=== PATIENT | male | born 1940 | race Caucasian/White ===

== ENCOUNTER 2021-08-11 14:01 | Inpatient (IN) | payer OTHER, SELFPAY ==
[2021-08-11] VITALS (29 sets, daily range): BP systolic 148–207; BP diastolic 75–102; PULSE 59–74; RESP 13–26; TEMP 36.4–36.8; O2SAT 97–100; BMI 22.5
--- NOTE | ~2021-08-11 | XR_ITS ---
EXAMINATION: XR chest 2V 08/11/2021 14:26 INDICATION: Left-sided chest pressure PROCEDURE: 2 view chest COMPARISON: 07/18/2011 FINDINGS: The lungs are clear. The cardiomediastinal silhouette is within normal limits. There are no pleural effusions. There is no pneumothorax suspected. IMPRESSION: 1: NO ACUTE CARDIOPULMONARY DISEASE. Reviewed, dictated and finalized at location A.
--- NOTE | 2021-08-11 14:18 | ECG_ITS ---
Measurements Intervals [place] Rate: 65 P: 56 [place]: 152 QRS: -54 QRSD: 141 T: 81 QT: 421 QTc: 438 Interpretive Statements SINUS RHYTHM INTRAVENTRICULAR CONDUCTION DELAY POOR R WAVE PROGRESSION, ANTERIOR LEADS LEFT VENTRICULAR HYPERTROPHY WITH ST-T CHANGE BORDERLINE ECG Electronically Signed On 08-11-2021 14:43:07 CDT by Jonah Campa D.O.
[2021-08-11 14:44] LABS: Basophils Absolute Auto 0.1 K/mm3 (0.0-0.1); Eosinophils Absolute Auto 0.2 K/mm3 (0-0.3); Mean Platelet Volume 10.2 fl (7.4-10.4)
[2021-08-11 14:46] LABS: Immature Platelet Fraction Pct 2.8 % (0.9-11.2)
[2021-08-11 14:47] LABS: INR 0.9; Prothrombin Time 11.8 Seconds (11.1-14.7)
[2021-08-11 14:48] LABS: Partial Thromboplastin Time 25.6 SECONDS (22.3-36.8)
[2021-08-11 14:49] LABS: Anion Gap 6 mmol/L (8-16); Basophils Percent Auto 0.6 % (0.2-1.2); Blood Urea Nitrogen 21 mg/dL (9-20); Calcium 9.6 mg/dL (8.4-10.2); Carbon Dioxide 30 mmol/L (22-30); Chloride 102 mmol/L (98-107); Eosinophils Percent Auto 1.7 % (0-4.4); Estimated CRCL calculation 48 ml/min; Estimated Glomerular Filt Rate > 60; Glucose 101 mg/dL (65-110); Hematocrit 45.4 % (42.0-52.0); Hemoglobin 14.2 g/dL (14.0-18.0); Immature Granulocyte Absolute 0.03 K/mm3 (0.00-0.031); Immature Granulocyte Percent A 0.3 % (0-0.5); Lymphocytes Absolute Auto 1.21 K/mm3 (0.9-3.2); Lymphocytes Percent Auto 10.8 % (18.3-44.2); Mean Corpuscular HGB Conc 31.3 g/dl (32-36); Mean Corpuscular Hemoglobin 31.3 pg (26-34); Monocytes Absolute Auto 0.8 K/mm3 (0.1-0.6); Monocytes Percent Auto 6.8 % (2.6-8.5); Neutrophils Percent Auto 79.8 % (45.5-73.1); Platelet Count Result 220 k/mm3 (150-375); Potassium 4.2 mmol/L (3.4-5.0); Red Blood Count 4.54 M/mm3 (4.6-6.20); Red Cell Distribution Width 13.4 % (11.5-14.5); Sodium 138 mmol/L (137-145); White Blood Count 11.2 K/mm3 (4.5-10.0)
--- NOTE | 2021-08-11 16:28 | ECG_ITS ---
Measurements Intervals [place] Rate: 64 P: 56 [place]: 144 QRS: -54 QRSD: 131 T: 87 QT: 443 QTc: 460 Interpretive Statements SINUS RHYTHM LEFT ANTERIOR FASCICULAR BLOCK LEFT VENTRICULAR HYPERTROPHY AND ST-T CHANGE POOR R WAVE PROGRESSION, ANTERIOR LEADS BASELINE ARTIFACT- II, III, AVR, AVF, V3-V6 ABNORMAL ECG Electronically Signed On 08-11-2021 20:31:49 CDT by Jonah Campa D.O.
[2021-08-11] MEDS: ASPIRIN 81 MG CHEWABLE TABLET 324 MG PO (17:05)
--- NOTE | 2021-08-11 17:42 | ED.CHESTPAIN ---
HPI - Chest Pain General Chief Complaint: Chest Pain Stated Complaint: Chest Tightness Time Seen by Provider: 08/11/21 17:12 Source: patient History of Present Illness HPI narrative: Patient with a history of 2 prior stents presents with chest pain. Symptoms started around 1130 while he was working outside. Pain was a pressure sensation in the middle of his chest no radiation no clear aggravating or alleviating factors there is some association with lightheadedness and very mild shortness of breath. Denies any nausea vomiting or diaphoresis. Reports has had intermittent symptoms like this before but today's episode was more severe so he wanted to come to the ER for evaluation. Related Data Home Medications Medication Instructions Recorded Confirmed aspirin 81 mg tablet,delayed 81 mg PO DAILY 12/30/19 07/10/21 release simvastatin 40 mg tablet 40 mg PO DAILY 12/30/19 07/10/21 Allergies Allergy/AdvReac Type Severity Reaction Status Date / Time No Known Allergies Allergy Verified 07/10/21 10:43 Review of Systems Review of Systems: CONSTITUTIONAL: Denies fever, chills, or sweats. EYES: Denies visual changes, redness, or discharge. ENT: Denies rhinorrhea, congestion, sore throat, or otalgia. CARDIOVASCULAR: Denies palpitations, or edema. RESPIRATORY: Denies cough GASTROINTESTINAL: Denies abdominal pain, nausea, vomiting, or diarrhea. GENITOURINARY: Denies dysuria or hematuria. SKIN: Denies rash or itching. MUSCULOSKELETAL: Denies back pain, joint pain, or myalgia. NEUROLOGIC: Denies headache, numbness, or weakness. PSYCHIATRIC: Denies anxiety or depression. All systems reviewed & are unremarkable except as noted in HPI and below [facility] Past Medical History Medical History (Updated 08/11/21 @ 18:18 by Tamar Thomas PA-C) Coronary artery disease Status post stent to the proximal LAD and mid right coronary artery. 50% narrowing in the mid circumflex noted on cardiac catheterization in July 2010. Erectile dysfunction Mixed hyperlipidemia Ureteral calculi Surgical History Surgical History (Updated 08/11/21 @ 18:18 by Tamar Thomas PA-C) History of colonoscopy History of coronary artery stent placement (02/07/10) Proximal LAD and mid right coronary artery. History of cystoscopy (04/20/14) With right ureteroscopy, stone extraction, and right ureteral stent placement. 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 Family History Family History Mother Family history of chronic obstructive pulmonary disease Patient's mother is Father Family history of diabetes mellitus in first degree relative Family history of heart disease in male family member before age 55 Patient's father is Other Diabetes mellitus Family history of cardiovascular disease Family history of malignant neoplasm Social History Social History (Updated 08/11/21 @ 18:19 by Tamar Thomas PA-C) Social History: Surrogate decision maker: Laura Peterstata, spouse. Code status: Full code. Smoking status: Never smoker Alcohol intake: never Substance use: never Additional living arrangements comments: Resides in [place] with his . 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 Exam Narrative: GENERAL: Well-appearing, well-nourished, and in no acute distress. HEAD: Normocephalic, atraumatic. EYES: PERRLA and EOMI. ENT: Nares clear, no rhinorrhea or epistaxis. Mucous membranes moist. NECK: Supple. No masses. No JVD CHEST: Clear to auscultation. No respiratory distress. No wheezes rales or rhonchi HEART: Regular rate and rhythm. No murmur heard. Normal peripheral pulses. ABDOMEN: Soft, nontender, nondistended, normal active bowel
[2021-08-11] MEDS: HEPARIN SOD/D5W 100 UNITS/ML 25,000 UNITS/250 ML BAG 8 UNITS IV CONT (18:10)
[2021-08-11] MEDS: HEPARIN SODIUM 5,000 UNITS/ML VIAL 4000 UNITS IV PUSH (18:10)
--- NOTE | 2021-08-11 18:30 | PM.IMHP ---
H&P: HPI History of Present Illness Date/Time: 08/11/21 18:30 <Tamar Thomas PA-C - Last Filed: 08/11/21 21:36> Chief Complaint: Chest pain. <Tamar Thomas PA-C - Last Filed: 08/11/21 21:36> Narrative: This is a 81-year-old male with coronary artery disease status post stent x2 who presented to the emergency department earlier today from home for evaluation of chest pain. Around 11:30 he was outside doing some work on his boat when he developed a severe tightness in the middle of his chest associated with mild dizziness. It was severe enough that he sat down and took a nitroglycerin pill however that did nothing but give him us slight headache, so he went inside to lie down. The tightness continued and he tried 2 more nitroglycerin without benefit thus he felt it would be best to come in for evaluation. On the way to the hospital he took 2, 325 mg aspirin tablets and on arrival his troponin was found to be mildly elevated. His 3 hour troponin jumped quite markedly and a repeat EKG done at that time reportedly did not show any acute ST segment changes. He has since been started on a heparin drip and he is being admitted to the IMU in this setting. At the time my evaluation he has no discomfort and has no current complaints. With further questioning he does admit to being more winded than usual when walking his dog around the neighborhood though he has not had any chest pain with that. He last saw Dr. Kinney about 4 to 5 months ago and patient reports having an unremarkable stress test perhaps 6 months ago. <Tamar Thomas PA-C - Last Filed: 08/11/21 21:36> Review of Systems Review of Systems: Twelve systems were reviewed. Patient denies nausea, vomiting, and sweats with his pain today. No pleuritic pain. No orthopnea, PND, or lower extremity edema. No cold or flu symptoms. He denies recent travel. He did receive the COVID vaccination series but has yet to have his booster. Except as documented, all other systems were reviewed and are negative. <Tamar Thomas PA-C - Last Filed: 08/11/21 21:36> [facility] Past Medical History Medical History: Medical History Coronary artery disease Status post stent to the proximal LAD and mid right coronary artery. 50% narrowing in the mid circumflex noted on cardiac catheterization in July 2010. Erectile dysfunction Mixed hyperlipidemia Ureteral calculi <Tamar Thomas PA-C - Last Filed: 08/11/21 21:36> Surgical History Surgical History: Surgical History (Updated 08/11/21 @ 21:30 by Tamar Thomas PA-C) History of cataract extraction with lens replacement History of colonoscopy History of coronary artery stent placement (02/07/10) Proximal LAD and mid right coronary artery. History of cystoscopy (04/20/14) With right ureteroscopy, stone extraction, and right ureteral stent placement. 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 <Tamar Thomas PA-C - Last Filed: 08/11/21 21:36> Family History Family History: Family History Mother Patient's mother is Family history of chronic obstructive pulmonary disease Cancer Family history of malignant neoplasm Father Family history of heart disease in male family member before age 55 Family history of diabetes mellitus in first degree relative Patient's father is Family history of cardiovascular disease <Tamar Thomas PA-C - Last Filed: 08/11/21 21:36> Social History Social History: Social History (Updated 08/11/21 @ 21:30 by Tamar Thomas PA-C) Social History: Surrogate decision maker: Laura Nur, spouse. Code status: Full code. Smoking status: Never
[2021-08-11] MEDS: MORPHINE SULFATE (*CRX) 4 MG/ML INJ IV PUSH (18:37)
[2021-08-11] MEDS: METOPROLOL TARTRATE INJ 5 MG/5 ML VIAL IV PUSH (18:37)
[2021-08-11 20:00] LABS: Basophils Absolute Auto 0.1 K/mm3 (0.0-0.1); Basophils Percent Auto 0.7 % (0.2-1.2); Eosinophils Absolute Auto 0.4 K/mm3 (0-0.3); Hematocrit 42.4 % (42.0-52.0); Immature Granulocyte Absolute 0.03 K/mm3 (0.00-0.031); Immature Granulocyte Percent A 0.3 % (0-0.5); Lymphocytes Absolute Auto 1.91 K/mm3 (0.9-3.2); Lymphocytes Percent Auto 21.8 % (18.3-44.2); Mean Corpuscular Hemoglobin 31.2 pg (26-34); Mean Corpuscular Volume 94.4 fl (80-100); Mean Platelet Volume 9.6 fl (7.4-10.4); Monocytes Absolute Auto 0.7 K/mm3 (0.1-0.6); Monocytes Percent Auto 8.3 % (2.6-8.5); Neutrophils Absolute Auto 5.6 K/mm3 (1.3-6.7); Neutrophils Percent Auto 63.9 % (45.5-73.1); Platelet Count Result 211 k/mm3 (150-375); Red Blood Count 4.49 M/mm3 (4.6-6.20); Red Cell Distribution Width 13.3 % (11.5-14.5); White Blood Count 8.8 K/mm3 (4.5-10.0)
[2021-08-11 20:10] LABS: INR 0.9; Prothrombin Time 12.5 Seconds (11.1-14.7)
[2021-08-11 20:13] LABS: Partial Thromboplastin Time 129.5 SECONDS (22.3-36.8)
--- NOTE | 2021-08-11 20:41 | ADMGEN ---
This patient, Dk Nur, was admitted to IMU Room 212-01 at 08/11/21 at 2004. Patient/family oriented to hospital policies and general routines including ID bracelet, bed and alarms, visiting hours, pain management, procedures, bathroom and other care routines, personal items, smoking policy, room service/diet, and visiting hours. Information on how to activate the Rapid Response Team has been discussed. Patient/Family are encouraged to report perceived risks to care and to ask questions if they do not understand what they are told or what they should do.
[2021-08-11] MEDS: SODIUM CHLORIDE 0.9% IV 1,000 ML 125 ML IV CONT (21:09)
[2021-08-11] MEDS: SIMVASTATIN 20 MG TABLET 40 MG PO (23:57)
[2021-08-12] VITALS (23 sets, daily range): BP systolic 125–175; BP diastolic 72–109; PULSE 48–72; RESP 14–20; TEMP 36.3–37; O2SAT 93–99
[2021-08-12 06:46] LABS: Basophils Absolute Auto 0.1 K/mm3 (0.0-0.1); Basophils Percent Auto 1.1 % (0.2-1.2); Eosinophils Absolute Auto 0.7 K/mm3 (0-0.3); Eosinophils Percent Auto 8.4 % (0-4.4); Hematocrit 41.6 % (42.0-52.0); Hemoglobin 13.8 g/dL (14.0-18.0); Immature Granulocyte Absolute 0.03 K/mm3 (0.00-0.031); Immature Granulocyte Percent A 0.4 % (0-0.5); Lymphocytes Absolute Auto 1.64 K/mm3 (0.9-3.2); Lymphocytes Percent Auto 20.2 % (18.3-44.2); Mean Corpuscular HGB Conc 33.2 g/dl (32-36); Mean Corpuscular Hemoglobin 30.7 pg (26-34); Mean Corpuscular Volume 92.7 fl (80-100); Mean Platelet Volume 9.9 fl (7.4-10.4); Monocytes Absolute Auto 0.7 K/mm3 (0.1-0.6); Monocytes Percent Auto 8.7 % (2.6-8.5); Neutrophils Percent Auto 61.2 % (45.5-73.1); Platelet Count Result 207 k/mm3 (150-375); Red Blood Count 4.49 M/mm3 (4.6-6.20); Red Cell Distribution Width 13.3 % (11.5-14.5); White Blood Count 8.1 K/mm3 (4.5-10.0)
[2021-08-12 07:08] LABS: Alanine Aminotransferase 27 U/L (4-50); Alkaline Phosphatase 85 U/L (38-126); Anion Gap 4 mmol/L (8-16); Aspartate Amino Transferase 119 U/L (17-59); Bilirubin,Total 0.6 mg/dL (0.2-1.3); Blood Urea Nitrogen 14 mg/dL (9-20); Carbon Dioxide 27 mmol/L (22-30); Chloride 106 mmol/L (98-107); Cholesterol 151 mg/dL (0-200); Estimated CRCL calculation 53 ml/min; Estimated Glomerular Filt Rate > 60; Glucose 103 mg/dL (65-110); HDL Direct 72 mg/dL; Potassium 3.9 mmol/L (3.4-5.0); Sodium 137 mmol/L (137-145); Triglycerides 85 mg/dL (<150)
[2021-08-12 07:17] LABS: LDL Cholesterol Direct 63 mg/dL
[2021-08-12 07:44] LABS: Partial Thromboplastin Time 51.5 SECONDS (22.3-36.8)
--- NOTE | 2021-08-12 08:28 | PM.IMPN ---
Progress Note: A&P Assessment and Plan (1) Acute non-ST elevation myocardial infarction (NSTEMI): Code(s): I21.4 - Non-ST elevation (NSTEMI) myocardial infarction Status: Acute (2) Coronary artery disease: Code(s): I25.10 - Atherosclerotic heart disease of [place] coronary artery without angina pectoris Status: Acute (3) Mixed hyperlipidemia: Code(s): E78.2 - Mixed hyperlipidemia Status: Acute (4) Hypertension: Qualifiers: Hypertension type: unspecified Qualified Code(s): I10 - Essential (primary) hypertension Code(s): I10 - Essential (primary) hypertension Status: Acute Additional Plan ACS -Presenting with severe exertional retrosternal chest pain. Trop 0.6 to 20, ST changes on EKG -no acute cxr findings, not hypoxic right now -ACS protocol: prn morphine and nitroglycerin; Aspirin 325 x2 en route to hospital, 50 Toprol, 40 simvastatin, currently on Heparin Drip. -labeling specialist results: lt main stenosis, high grade ostial LAD stenosis, proximal aspect large OM1/ramus; rec surgical revascularization given high grade lesions in LAD, OM/ramus branch, moderate left main disease Time Spent With Patient Time with patient: less than 15 minutes Subjective Date/time seen: 08/12/21 08:28 currently well controlled chest pain breathing on room air Review of Systems Review of Systems: All systems reviewed & are unremarkable except as noted in HPI and below Exam Const: General: no acute distress Neck: Neck: no JVD Resp: Effort & Inspection: normal respiratory effort Auscultation: clear to auscultation bilaterally Cardio: Rate: regular rate Rhythm: regular rhythm GI: GI Palp: Yes Soft to palpation and No Tenderness to palpation present (GI) Objective Data Vital Signs Vital Signs: Vital Signs - 24 hr 08/11/21 14:28 08/11/21 16:26 08/11/21 16:30 Temperature 97.6 F Pulse Rate 65 64 63 Respiratory Rate 16 17 23 H Blood Pressure 180/88 H Pulse Oximetry 99 100 100 08/11/21 16:45 08/11/21 17:00 08/11/21 17:15 Temperature Pulse Rate 63 65 64 Respiratory Rate 19 13 23 H Blood Pressure Pulse Oximetry 99 99 100 08/11/21 17:30 08/11/21 17:37 08/11/21 17:39 Temperature Pulse Rate 64 64 64 Respiratory Rate 21 H 23 H 22 H Blood Pressure 207/102 H 206/96 H Pulse Oximetry 98 100 100 08/11/21 17:45 08/11/21 17:46 08/11/21 18:00 Temperature Pulse Rate 65 64 64 Respiratory Rate 20 23 H 22 H Blood Pressure 182/97 H Pulse Oximetry 97 99 99 08/11/21 18:01 08/11/21 18:02 08/11/21 18:15 Temperature Pulse Rate 66 65 65 Respiratory Rate 22 H 26 H 22 H Blood Pressure 167/89 H 184/94 H Pulse Oximetry 99 99 100 08/11/21 18:16 08/11/21 18:30 08/11/21 18:31 Temperature Pulse Rate 64 66 66 Respiratory Rate 23 H 22 H 24 H Blood Pressure 178/91 H Pulse Oximetry 100 99 98 08/11/21 18:32 08/11/21 18:37 08/11/21 18:45 Temperature Pulse Rate 66 68 60 Respiratory Rate 21 H 16 Blood Pressure Pulse Oximetry 99 98 08/11/21 18:46 08/11/21 20:15 08/11/21 20:16 Temperature Pulse Rate 62 61 61 Respiratory Rate 21 H 18 Blood Pressure 148/83 H Pulse Oximetry 98 99 08/11/21 20:25 08/11/21 20:36 08/11/21 22:00 Temperature 98.2 F Pulse Rate 61 60 59 L Respiratory Rate 18 18 Blood Pressure 160/75 H Pulse Oximetry 99 98 08/11/21 23:40 08/11/21 23:47 08/12/21 00:00 Temperature 98 F Pulse Rate 74 74 68 Respiratory Rate 18 18 Blood Pressure 161/89 H Pulse Oximetry 97 97 08/12/21 01:31 08/12/21 03:12 08/12/21 04:00 Temperature 97.8 F Pulse Rate 59 L 57 L 57 L Respiratory Rate 16 Blood Pressure 148/75 H Pulse Oximetry 96 08/12/21 05:52 Temperature Pulse Rate 60 Respiratory Rate Blood Pressure Pulse Oximetry Intake/Output Intake/Output: Intake & Output 08/09/21 08/10/21 08/11/21 08/12/21 23:59 23:59 23:59 23:59 Intake Total 344 Output Total 340
--- NOTE | 2021-08-12 08:43 | PM.CNCAR ---
Assessment and Plan Additional Plan 81-year-old man with coronary disease remote history of PCI to the LAD and right coronary arteries as mentioned above. Presents to the hospital with obvious acute coronary syndrome. He is stable this morning. We will bring him to the cardiac catheterization lab for follow-up angiographic assessment shortly and further recommendations will be formulated after reviewing those findings. Giovani Isbell MD [facility] History of Present Illness History of Present Illness Consult date/time: 08/12/21 08:43 Reason For Visit: NSTEMI Narrative: This is a very pleasant 81-year-old man I am seeing at the request of the hospitalist because of acute coronary syndrome/non ST elevation [place]. He is known to our practice with a history of coronary artery disease dating back to about 11 years ago. In 2009 he was found to have coronary disease and underwent percutaneous angioplasty and stenting of his proximal LAD and mid right coronary arteries. He has done well since then. He did have an episode of exertional dyspnea mild decline in ejection fraction on a nuclear stress test in December of 2014. A follow-up angiogram at that time demonstrated his stented lesions to be nicely patent there was a new small occlusion of the 2nd OM circumflex branch that appeared to be a chronic total occlusion he was stable his left ventricular function looked okay in the carpenter/labor and ongoing medical therapy was recommended. He has been doing well since then and follows that now in the office with Dr. Castellanos. Patient was in his usual state of good health when yesterday on Thursday afternoon he was at the [employer] working on his boat. While he was performing his maintenance activities he started to notice some central chest tightness that was not severe but at least moderate in intensity the sense of tightness did not radiate to any other location. He took a nitroglycerin tablet then he went into his house to lie down and relax. Over the next 20-30 minutes he took a 2-1/3nd dose as he has been instructed to do by his physicians he then developed a nitrate headache but really no substantial improvement in his symptoms so he came to the emergency department. His electrocardiogram shows a sinus mechanism with a leftward axis, a left anterior superior hemiblock but no significant ST segment changes. Troponin level in the emergency room was minimally elevated. He was treated with aspirin, anticoagulation with heparin nitrates and beta-blockers and became symptom free in the emergency department. He is admitted to the IMU his troponin levels however has risen significantly up to 11 and then up to 21. He is being seen in that setting in consultation this morning. His past medical history is otherwise remarkable for hyperlipidemia and nephrolithiasis. Review of Systems Constitutional: Constitutional: Reports no additional constitutional complaints Eyes: Eyes: Reports no additional eye complaints ENT: Reports system reviewed and no additional complaints, except as documented Cardiovascular: Cardiovascular: Reports as per HPI Respiratory: Respiratory: Reports no additional respiratory complaints Gastrointestinal: Gastrointestinal: Reports no additional gastrointestinal complaints Musculoskeletal: Musculoskeletal: Reports no additional musculoskeletal complaints Integumentary/Breasts: Skin/Breast: Reports system reviewed and no additional complaints, except as docu Neurologic: Reports system reviewed and no additional complaints, except as documented Endocrine: Endocrine: Reports no additional endocrine complaints Hematologic/Lymphatic: Hematologic/Lymphatic: Reports no additional hematologic/lymphatic complaints Allergic/Immunologic: Allergic/Immunologic: Reports no additional allergic/immunologic complaints [facility] Past Medical History Medical History Coronary artery disease Status post stent to
--- NOTE | 2021-08-12 08:56 | WPDMODSED ---
Moderate Sedation Note-Pt Data Patient Data Diagnosis: Non ST-elevation [place] Present Complaint: Chest pain Procedure to be performed/Plan: Left heart catheterization Allergies Allergy/AdvReac Type Severity Reaction Status Date / Time No Known Allergies Allergy Verified 07/10/21 10:43 Home Medications Medication Instructions Recorded Confirmed Type aspirin 81 mg tablet,delayed 81 mg PO 12/30/19 08/11/21 History release simvastatin 40 mg tablet 40 mg PO 12/30/19 08/11/21 History Current Medications: Active Medications Aspirin (Aspirin 81 Mg Chewable Tablet) 81 mg PO DAILY@0800 [facility] Aspirin (Aspirin Ec At Hs - Patient Already Has Asa Ordered For Am - Please Clarify Which Order To) 81 mg PO [facility] Heparin Sodium (Porcine) (Heparin Sodium 5,000 Units/Ml Vial) 4,000 units IV PUSH PRN PRN PRN Reason: aPTT less than 55 seconds Heparin Sodium (Porcine) (Heparin Sodium 5,000 Units/Ml Vial) 2,500 units IV PUSH PRN PRN PRN Reason: aPTT 55 - 70 seconds Heparin Sodium/Dextrose (Heparin Sodium/D5w 100 Units/Ml) 25,000 units in 250 mls @ 8 mls/hr IV CONT .Q24H ZAHRA; Protocol Last Titration: 08/12/21 00:02 Dose: 800 units/hr, 8 mls/hr Documented by: Acetaminophen (Ofirmev 1,000 Mg Ivpb) 1,000 mg in 100 mls @ 400 mls/hr IVPB Q6H PRN PRN Reason: Mild Pain (1-3) or Fever Stop: 08/12/21 18:02 Metoprolol Succinate (Metoprolol Succinate Ext Rel 50 Mg Tabcr) [facility] Miscellaneous Information (Aspirin Ec At Hs - Patient Already) 0 each XX [facility] Stop: 09/10/21 00:00 Morphine Sulfate (Morphine Sulfate (*Crx) 4 Mg/Ml Inj) 4 mg IV PUSH Q2H PRN PRN Reason: Pain Rated 7-10 Nitroglycerin (Nitroglycerin Sl 0.4 Mg Tablet) 0.4 mg SUBLINGUAL Q5MIN PRN PRN Reason: Chest Pain Simvastatin (Simvastatin 20 Mg Tablet) 40 mg PO [facility] Sedation/Anesthesia: No previous sedation/anesthesia problems (including family history). [facility] Past Medical History Medical History Coronary artery disease Status post stent to the proximal LAD and mid right coronary artery. 50% narrowing in the mid circumflex noted on cardiac catheterization in July 2010. Erectile dysfunction Mixed hyperlipidemia Ureteral calculi Surgical History Surgical History (Updated 08/11/21 @ 21:30 by Tamar Thomas PA-C) History of cataract extraction with lens replacement History of colonoscopy History of coronary artery stent placement (02/07/10) Proximal LAD and mid right coronary artery. History of cystoscopy (04/20/14) With right ureteroscopy, stone extraction, and right ureteral stent placement. 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 Family History Family History Mother Patient's mother is Family history of chronic obstructive pulmonary disease Cancer Family history of malignant neoplasm Father Family history of heart disease in male family member before age 55 Family history of diabetes mellitus in first degree relative Patient's father is Family history of cardiovascular disease Social History Social History (Updated 08/11/21 @ 21:30 by Tamar Thomas PA-C) Social History: Surrogate decision maker: Laura Nur, spouse. Code status: Full code. Smoking status: Never smoker Second hand tobacco smoke exposure: No Alcohol intake: never Substance use: never Substance use type: does not use Additional living arrangements comments: Resides in [place] with his . 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
--- NOTE | 2021-08-12 09:48 | WPDCARDPROC ---
Cardiac Cath Procedure Note Date of procedure:: 08/12/21 Performing physician:: Giovani Isbell MD Indication:: Acute coronary syndrome / non ST-elevation [place] Brief clinical history:: this is a 81-year-old man who is well known to have coronary disease having undergone stenting of his proximal LAD and mid right coronary artery 11 years ago. He is known to have a distal circumflex occlusion subsequent to that. He has been doing well but entered the hospital yesterday with ischemic chest pain that began while he was doing some chores, working on his boat. 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 Troponin levels though did increase significantly prompting follow-up angiogram to be recommended. Procedure Procedure performed:: Coronary angiogram left ventriculogram Sedation/Medication given:: fentanyl 50 mg Versed 2 mg case start time 9:18 a.m. case end time 9:34 a.m. sedation provided by Nathan Villanueva RN, trained observer Access site:: right femoral artery Estimated blood loss:: 15 cc Procedure note:: patient was brought to the cardiac catheterization lab in the postabsorptive state the right femoral triangle was prepped and draped in the usual fashion. Anesthesia was provided with 1% lidocaine infiltrated locally. Using the modified Seldinger technique the femoral artery was punctured 5 [place] vascular sheath was placed. Left heart catheterization was then carried out initially a 5 [place] angled pigtail catheter was used to measure left-sided hemodynamics and inject an LV g in the LEWIS projection. After this the pigtail catheter was withdrawn. I used a standard 5 [place] FL4 catheter to engage inject the left coronary artery in multiple projections. Then a standard 5 [place] JR4 catheter was used to engage and inject the right coronary artery. The cine angiograms were reviewed and the case was terminated. I did perform an angiogram of the femoral artery through the sheath the puncture was inferior to the bifurcation and he was therefore not a candidate for Angio-Seal device. 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 Findings:: Hemodynamics: Central aortic pressure is 118 over 56 left ventricle 122/0 end diastolic is 10 there is no gradient on pullback across the aortic valve. Left ventricle: The LV is normal in size the inferior posterior segment is modestly hypodynamic overall ejection fraction is normal at 50%. The left main coronary artery is relatively long there is distal left main disease that is somewhat eccentric there appears to be at least 60% distal left main stenosis. The left anterior descending is a medium caliber artery extending down to around the apex there is visible stent material in the proximal segment of the LAD which remains nicely patent. In the MAYRA cranial projection however it is obvious there is a high-grade ostial LAD stenosis of 99%. The circumflex is a moderate caliber vessel the 1st very large OM branch takes off as a ramus intermedius branch. This vessel has high-grade proximal stenosis of 85-90%. 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 Right coronary artery is moderate to large caliber and dominant to the posterior circulation. There is visible stent material in the mid portion of the RCA. There are mild luminal irregularities in the right coronary but no functionally significant disease. There is some collateral filling from the distal RCA to the occluded distal circumflex segment. Conclusion:: 1. Progressive left coronary disease involving moderate distal left main stenosis, very high-grade ostial LAD stenosis and very high-grade stenosis in the proximal aspect of the very large OM
[2021-08-12] MEDS: SODIUM CHLORIDE 0.9% IV 1,000 ML 125 ML IV CONT (10:00)
--- NOTE | 2021-08-12 10:26 | SUR.PHASEII ---
Pt arrived to Chest pain center at 0956 for sheath removal post cardiac cath. Sheath intact to right femoral artery without signs of hematoma prior to sheath removal at 1004. Pt voided per urinal while manual pressure is in progress.
[2021-08-12] MEDS: METOPROLOL SUCCINATE EXT REL 50 MG TABCR PO (11:47)
[2021-08-12] MEDS: ASPIRIN 81 MG CHEWABLE TABLET PO (11:47)
[2021-08-12 14:12] LABS: Basophils Absolute Auto 0.1 K/mm3 (0.0-0.1); Basophils Percent Auto 0.8 % (0.2-1.2); Eosinophils Absolute Auto 0.4 K/mm3 (0-0.3); Eosinophils Percent Auto 5.6 % (0-4.4); Hematocrit 42.6 % (42.0-52.0); Hemoglobin 13.9 g/dL (14.0-18.0); Immature Granulocyte Absolute 0.02 K/mm3 (0.00-0.031); Immature Granulocyte Percent A 0.3 % (0-0.5); Lymphocytes Absolute Auto 1.29 K/mm3 (0.9-3.2); Lymphocytes Percent Auto 17.6 % (18.3-44.2); Mean Corpuscular HGB Conc 32.6 g/dl (32-36); Mean Corpuscular Volume 94.9 fl (80-100); Mean Platelet Volume 9.7 fl (7.4-10.4); Monocytes Absolute Auto 0.5 K/mm3 (0.1-0.6); Neutrophils Percent Auto 68.7 % (45.5-73.1); Platelet Count Result 191 k/mm3 (150-375); Red Blood Count 4.49 M/mm3 (4.6-6.20); Red Cell Distribution Width 13.6 % (11.5-14.5); White Blood Count 7.3 K/mm3 (4.5-10.0)
[2021-08-12 14:33] LABS: INR 0.9; Prothrombin Time 12.2 Seconds (11.1-14.7)
--- NOTE | 2021-08-12 15:48 | PM.TDS ---
Transfer Discharge Sum: Prov Provider Date of admission: 08/11/21 18:03 Primary care physician: Michele Salgado DO Admitting clinician: Isaac Giles MD Attending physician on admission: Isaac Giles Consults: 08/11/21 18:04 Consult to Physician Routine Comment: Consulting Provider: Giovani Isbell Reason for consultation: NSTEMI Has provider been notified: Yes Attending physician on discharge: Isaac Giles Discharging clinician: Isaac Giles Anticipated date of transfer: 08/12/21 DS: Admitting Diagnosis Discharge Date 08/12 Admitting Diagnosis chest pain DS: Discharge Diagnosis Discharge Diagnosis (1) Acute non-ST elevation myocardial infarction (NSTEMI): Code(s): I21.4 - Non-ST elevation (NSTEMI) myocardial infarction Status: Acute Transfer Discharge Sum: Med Medications Active and Home Medications: Home Medications aspirin 81 mg tablet,delayed release 81 mg PO 12/30/19 [History Confirmed 08/11/21] simvastatin 40 mg tablet 40 mg PO 12/30/19 [History Confirmed 08/11/21] Active Medications Aspirin (Aspirin 81 Mg Chewable Tablet) 81 mg PO DAILY@0800 [facility] Last Admin: 08/12/21 11:47 Dose: 81 mg Documented by: Aspirin (Aspirin Ec At Hs - Patient Already Has Asa Ordered For Am - Please Clarify Which Order To) 81 mg PO [facility] Heparin Sodium (Porcine) (Heparin Sodium 5,000 Units/Ml Vial) 4,000 units IV PUSH PRN PRN PRN Reason: aPTT less than 55 seconds Heparin Sodium (Porcine) (Heparin Sodium 5,000 Units/Ml Vial) 2,500 units IV PUSH PRN PRN PRN Reason: aPTT 55 - 70 seconds Acetaminophen (Ofirmev 1,000 Mg Ivpb) 1,000 mg in 100 mls @ 400 mls/hr IVPB Q6H PRN PRN Reason: Mild Pain (1-3) or Fever Stop: 08/12/21 18:02 Sodium Chloride (Normal Saline Iv) 1,000 mls @ 125 mls/hr IV CONT .Q8H ONE Stop: 08/12/21 17:45 Last Admin: 08/12/21 10:00 Dose: 125 mls/hr Documented by: Heparin Sodium/Dextrose (Heparin Sodium/D5w 100 Units/Ml) 25,000 units in 250 mls @ 8 mls/hr IV CONT .Q24H [facility]; Protocol Metoprolol Succinate (Metoprolol Succinate Ext Rel 50 Mg Tabcr) 50 mg PO QAM [facility] Last Admin: 08/12/21 11:47 Dose: 50 mg Documented by: Miscellaneous Information (Aspirin Ec At Hs - Patient Already) 0 each XX CLARIFY [facility] Stop: 09/10/21 00:00 Morphine Sulfate (Morphine Sulfate (*Crx) 4 Mg/Ml Inj) 4 mg IV PUSH Q2H PRN PRN Reason: Pain Rated 7-10 Nitroglycerin (Nitroglycerin Sl 0.4 Mg Tablet) 0.4 mg SUBLINGUAL Q5MIN PRN PRN Reason: Chest Pain Simvastatin (Simvastatin 20 Mg Tablet) 40 mg PO [facility] Transfer Discharge Sum: Hosp Hospital Course Hospital course: 81-year-old male with coronary artery disease status post 2 stent placements presenting to the emergency room on August 11 with chest pain, exertional, associated with dizziness, substernal. he received high-dose aspirin on the way to the hospital, in addition to nitroglycerin. Troponin initially 0.6, however elevated to 20 a few hours later, some ST depression, however no elevation, patient was placed on ACS protocol including morphine, nitroglycerin, aspirin, metoprolol, statins, and heparin drip. Taken to general labor, left main stenosis identified along with high-grade ostial LAD stenosis and proximal aspect of the large OM1 ramus. Cardiology recommending surgical revascularization given high-grade lesions in these vessels. Patient has been assigned a bed at [facility], and we will send him over there today, for surgical revascularization. He should be transported with heparin drip and p.r.n. morphine and p.r.n. nitroglycerin. This has been conveyed to the nurse. Also discussed this with the patient. Time Spent with Patient Time attestation: Total time spent providing and/or coordinating transfer services: Total time spent: Less than 30 minutes Exam Const: General: no acute distress Neck: Neck: no JVD Resp: Auscultation: clear to auscultation bilaterally Cardio: Rate: regular rate Rhythm: regular rhy
[2021-08-12] MEDS: HEPARIN SOD/D5W 100 UNITS/ML 25,000 UNITS/250 ML BAG 8 UNITS IV CONT (15:56)
--- NOTE | 2021-08-12 17:13 | PCCCNOTE ---
Spoke with Zamzam Hernandez at [facility] and obtained prior auth for ACLS transport. Prior auth #[id number]
== END 2021-08-12 19:07 | disposition short-term general hospital (02) | DRG 282 ==
LOC: ANHED 17:59 → ANHIMU 21:38
PROVIDERS: Emergency Medicine; Physician Assistant; Specialist; Admitting Provider Internal Medicine; Emergency Provider Emergency Medicine; PCP Internal Medicine; Visit Provider Internal Medicine
PROC: 4A023N7 Measurement of Cardiac Sampling and Pressure, Left Heart, Percutaneous Approach (ICD-10-PCS; CPT 93452; principal; 2021-08-12 09:00)
DX: I21.4 Non-ST elevation (NSTEMI) myocardial infarction (principal); I25.10 Atherosclerotic heart disease of native coronary artery without angina pectoris; E78.2 Mixed hyperlipidemia; N52.9 Male erectile dysfunction, unspecified; Z95.5 Presence of coronary angioplasty implant and graft; Z79.82 Long term (current) use of aspirin; Z98.42 Cataract extraction status, left eye; Z98.41 Cataract extraction status, right eye
CPT/HCPCS: 36415; 71046; 80048; 80053; 80061; 83735; 84484; 85025; 85055; 85610; 85730; 93005; 93458; 99285; A9270; C1887; C1894; J0461; J1644; J2250; J2270; J3010; J7030; J7040

== ENCOUNTER → 2021-09-13 09:49 | Outpatient (CLI) | payer OTHER, SELFPAY ==
[2021-09-13 16:36] LABS: SARS-CoV-2 RNA PCR Negative
== END ==
PROVIDERS: PCP Internal Medicine; Visit Provider Internal Medicine
DX: Z20.822 Contact with and (suspected) exposure to COVID-19 (principal)
CPT/HCPCS: C9803; U0003; U0005

== ENCOUNTER 2021-11-20 09:45 | Outpatient (RCR) | payer OTHER, SELFPAY | END 2021-11-20 09:58 | disposition home or self-care (01) | LOC: ANHCPREHAB 09:45 | PROVIDERS: PCP Internal Medicine; Visit Provider Specialist | DX: Z95.1 Presence of aortocoronary bypass graft (principal) | CPT/HCPCS: 93798 ==

== ENCOUNTER 2022-01-29 10:41 | Emergency (ER) | payer OTHER, SELFPAY ==
--- NOTE | ~2022-01-29 | XR_ITS ---
EXAMINATION: XR forearm LT 2V EXAM DATE: 01/29/2022 11:30 INDICATION: Anterior Mid Forearm Pain, Lamar Pop Opening Car Door . TECHNIQUE: Left forearm frontal and lateral projections obtained and reviewed. Correlation is made to left elbow 07/04/2019. FINDINGS: There are no acute left forearm fractures or dislocations identified. There is no subcutan eous gas. The soft tissue is unremarkable. There are no radiopaque foreign bodies. IMPRESSION: 1. Unremarkable left forearm exam. Reviewed, dictated and finalized at location A.
[2022-01-29 11:07] VITALS: BP 112/67; PULSE 67; RESP 16; TEMP 36.6; O2SAT 93
[2022-01-29] MEDS: ACETAMINOPHEN 500 MG TABLET 1000 MG PO (11:31)
--- NOTE | 2022-01-29 12:05 | ED.GENADULT ---
HPI - General Adult General Chief complaint: Extremity Injury, Upper Stated complaint: L forearm pain since 01/25/22 Time Seen by Provider: 01/29/22 11:13 Source: RN notes reviewed History of Present Illness HPI narrative: Patient presents emergency department from home for left forearm pain. Patient states he initially injured the forearm proximally 1 week ago when he was putting on socks he states that time he had felt a pop in his left forearm he states that the following day he noticed bruising across his left forearm states it hurt worse to make it fist with his left hand but he denied any direct trauma or injury and denies any pain to the wrist or elbow he states that he was going to open the car door and again felt a pull in that area and pain since that time he is on Plavix and aspirin he denies any other symptoms. Denies any numbness to the arm Related Data Home Medications Medication Instructions Recorded Confirmed aspirin 81 mg tablet,delayed 81 mg PO HS 12/30/19 09/02/21 release simvastatin 40 mg tablet 40 mg PO HS 12/30/19 09/02/21 amiodarone 200 mg tablet 200 mg PO BID tablet 09/02/21 09/02/21 clopidogrel 75 mg tablet 75 mg PO DAILY 09/02/21 09/02/21 docusate sodium 100 mg capsule 100 mg PO BID cap 09/02/21 09/02/21 polyethylene glycol 3350 17 17 g PO DAILY 09/02/21 09/02/21 gram/dose oral powder tramadol 50 mg tablet 50 mg PO Q4H PRN tablet 09/02/21 09/02/21 Allergies Allergy/AdvReac Type Severity Reaction Status Date / Time No Known Allergies Allergy Verified 01/29/22 11:09 Review of Systems Review of Systems: Gen.: Denies fevers or chills Musculoskeletal: See HPI Neuro: Denies numbness, tingling, weakness Skin: Denies rash Endo: Denies DM PMFSH Past Medical History Medical History Coronary artery disease Status post stent to the proximal LAD and mid right coronary artery. 50% narrowing in the mid circumflex noted on cardiac catheterization in July 2010. Erectile dysfunction Mixed hyperlipidemia Ureteral calculi Surgical History Surgical History (Updated 09/02/21 @ 12:58 by Arlene M. Supriya, BAG HANGER-C) History of cataract extraction with lens replacement History of colonoscopy History of coronary artery stent placement (02/07/10) Proximal LAD and mid right coronary artery. History of cystoscopy (04/20/14) With right ureteroscopy, stone extraction, and right ureteral stent placement. 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 Family History Family History Mother Patient's mother is Family history of chronic obstructive pulmonary disease Cancer Family history of malignant neoplasm Father Family history of heart disease in male family member before age 55 Family history of diabetes mellitus in first degree relative Patient's father is Family history of cardiovascular disease Social History Social History Social History: Surrogate decision maker: Laura Steinsukumar, spouse. Code status: Full code. Smoking status: Never smoker Second hand tobacco smoke exposure: No Alcohol intake: never Substance use: never Substance use type: does not use Additional living arrangements comments: Resides in [place] with his . 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 Exam Narrative: APPEARANCE: No acute distress, nontoxic, resting in bed Eyes: EOMI HEENT: Normocephalic, atraumatic, RESPIRATORY: No respiratory distress MUSCULOSKELETAl: Tender to palpation over the left palmar forearm with ecchymosis extending from the forearm down to the wrist the
[2022-01-29 12:17] VITALS: BP 125/70; PULSE 66; RESP 16; TEMP 36.4; O2SAT 98
== END 2022-01-29 12:17 | disposition home or self-care (01) ==
PROVIDERS: Emergency Provider Emergency Medicine; PCP Internal Medicine
DX: S56.912A Strain of unspecified muscles, fascia and tendons at forearm level, left arm, initial encounter (principal); I25.10 Atherosclerotic heart disease of native coronary artery without angina pectoris; E78.5 Hyperlipidemia, unspecified; X50.0XXA Overexertion from strenuous movement or load, initial encounter
CPT/HCPCS: 73090; 99283; A4565; A9270

== ENCOUNTER → 2022-04-29 13:58 | Outpatient (CLI) | payer OTHER, SELFPAY ==
--- NOTE | ~2022-04-29 | XR_ITS ---
XR chest 2V DATE: 04/29/2022 14:47 INDICATION: Cough TECHNIQUE: 2 views COMPARISON: 08/11/2021 PA and lateral chest FINDINGS: Status post sternotomy and coronary bypass graft surgery since 08/11/2021. Normal heart size. Is aortic calcification and mild unfolding. No hilar or mediastinal enlargement. The lungs are moderately hyperinflated but clear of infiltrate or consolidation. Osteopenia. IMPRESSION: Status post sternotomy and CABG since 08/11/2021 No active cardiopulmonary disease Aortic atherosclerosis Moderate hyperinflation Osteopenia Reviewed, dictated and finalized at location A.
== END ==
PROVIDERS: PCP Internal Medicine; Visit Provider Nurse Practitioner
DX: R05.9 Cough, unspecified (principal); Z95.1 Presence of aortocoronary bypass graft; I70.0 Atherosclerosis of aorta; R91.8 Other nonspecific abnormal finding of lung field; M85.88 Other specified disorders of bone density and structure, other site
CPT/HCPCS: 71046

== ENCOUNTER 2022-12-26 12:45 | Outpatient (CLI) | payer OTHER, SELFPAY ==
--- NOTE | ~2022-12-26 | CT_ITS ---
CT of the Abdomen and Pelvis: Indication: Abdominal pain Technique: 2.5 mm axial scans were obtained through the abdomen and pelvis following intravenous adm inistration of 100 cc of Omnipaque 350. Dose reduction technique was used on this scan by utilizing a utomated exposure control and iterative reconstruction technique. The dose-length product (DLP) was 2 87.48 mGy-cm. COMPARISON: 03/26/2014 Findings: Scans through the lung bases demonstrate mild diffuse subpleural reticulation. The liver, spleen, pancreas, adrenals and kidneys are within normal limits. Calcified gallstone noted . No evidence of aortic aneurysm. No lymphadenopathy. No bowel obstruction or bowel wall thickening. There is no evidence to suggest acute appendicitis. Th ere is diverticulosis without evidence of diverticulitis. Images through the pelvis were performed. Urinary bladder unremarkable. Prostate gland mildly enlarge d. Impression: Cholelithiasis. Probable minimal bibasilar chronic pulmonary interstitial disease. Reviewed, dictated and finalized at location . MENDER Impression: Cholelithiasis. Probable minimal bibasilar chronic pulmonary interstitial disease.
[2022-12-26 13:16] LABS: Estimated Glomerular Filt Rate 58
== END 2022-12-26 12:46 | disposition home or self-care (01) ==
PROVIDERS: PCP Internal Medicine; Visit Provider Nurse Practitioner Family
DX: R10.11 Right upper quadrant pain (principal); K80.20 Calculus of gallbladder without cholecystitis without obstruction
CPT/HCPCS: 74177; Q9967

== ENCOUNTER 2024-02-26 09:25 | Outpatient (CLI) | payer OTHER, SELFPAY ==
--- NOTE | ~2024-02-26 | XR_ITS ---
XR chest 2V 02/26/2024 09:46 Indication: Atherosclerosis. Procedure: 2 view chest Comparison: Comparison to multiple prior studies sequentially, with oldest reviewed study dated 07/27. Findings: Status post median sternotomy for CABG. Heart size normal. No focal air space disease, pulm onary edema, pleural effusion or suspected pneumothorax. The lungs are hyperinflated which is consist ent with, but not diagnostic of chronic obstructive pulmonary disease. Impression: 1: No acute cardiopulmonary disease. Reviewed, dictated and finalized at location B. Impression: 1: No acute cardiopulmonary disease.
== END 2024-02-26 09:26 ==
PROVIDERS: PCP Nurse Practitioner Family; Visit Provider Nurse Practitioner Family
DX: I25.10 Atherosclerotic heart disease of native coronary artery without angina pectoris (principal)
CPT/HCPCS: 71046

== ENCOUNTER 2024-03-08 14:41 | Outpatient (CLI) | payer OTHER, SELFPAY ==
--- NOTE | 2024-03-08 16:27 | WPDPFTINT ---
PFT Procedure Performed PFT Procedure Performed Spirometry with Pre/Post Bronchodilator Plethysmography (Lung Vol) Diffusing Cap (DLCO) Flow Vol Loop PFT Interpretation This is a pulmonary function test with pre and post-bronchodilator spirometry, plethysmography and diffusing capacity. The test was performed and results interpreted in accordance with the 2019 and 2005 ATS/ERS Task Force guidelines respectively using the Global Lung Function Initiative-2012 reference equations. Patient demonstrated good effort and cooperation. Reproducibility criteria were met. The quality of the pre bronchodilator spirometry maneuver was Grade A and post bronchodilator spirometry maneuver was Grade A. Findings: Spirometry: The contour the inspiratory and expiratory flow tracing are normal. The pre bronchodilator FVC is 2.88 L, 80% predicted. The pre bronchodilator FEV1 is 2.00 L, 75% predicted. The pre bronchodilator FEV1: FVC ratio 70%. The post bronchodilator FVC is 2.91 L, representing a 1% increase. The post bronchodilator FEV1 is 2.08 L, representing a 4% increase. The post bronchodilator FEV1: FVC ratio 71%. Plethysmography: The total lung capacity is 5.21 L, 78% predicted. The functional residual capacity is 2.85 L, 79% predicted. The residual volume is 2.33 L, 90% predicted. Diffusing capacity: The diffusing capacity unadjusted for hemoglobin and carboxyhemoglobin is 15.8, 70% predicted. The diffusing capacity adjusted for alveolar volume is 3.63, 99% predicted. Impression: The spirometry is normal without evidence of an obstructive abnormality. There is no significant improvement after inhaling a single dose of albuterol. The lung volumes are normal. The diffusing capacity is normal. There are no prior studies for comparison
== END 2024-03-08 14:42 | disposition home or self-care (01) ==
PROVIDERS: PCP Nurse Practitioner Family; Visit Provider Nurse Practitioner Family
DX: R06.02 Shortness of breath (principal); R05.9 Cough, unspecified
CPT/HCPCS: 94060; 94726; 94729

== ENCOUNTER 2024-05-18 11:39 | Outpatient (CLI) | payer OTHER, SELFPAY ==
--- NOTE | ~2024-05-18 | XR_ITS ---
XR_CERV2-3V_CR Ordering provider: Jaci Chua APRN History: . No injury left shoulder and neck pain for 1 year . Comparison: None. FINDINGS: VERTEBRAL BODIES: Normal height and alignment. No visible fracture or subluxation. The dens is intact . Degenerative changes of the spine. 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 Multilevel facet joint disease. Multilevel uncovertebral joint osteoarthritic changes. PARASPINOUS SOFT TISSUES: No prevertebral soft tissue swelling. IMPRESSION: No acute osseous abnormality cervical spine. Reviewed, dictated and finalized at location A.
--- NOTE | ~2024-05-18 | XR_ITS ---
XR shoulder LT min 2V Ordering provider: Jaci Chua APRN History: . No injury left shoulder and neck pain for 1 year . Comparison: None. FINDINGS: BONES: No acute fracture or dislocation. JOINT SPACES: The acromioclavicular joint is normal. The glenohumeral joint is normal. SOFT TISSUES: Normal. IMPRESSION: No acute osseous abnormality left shoulder. Reviewed, dictated and finalized at location A.
== END 2024-05-18 11:40 ==
PROVIDERS: PCP Nurse Practitioner Family; Visit Provider Nurse Practitioner Family
DX: M54.2 Cervicalgia (principal); M25.512 Pain in left shoulder
CPT/HCPCS: 72040; 73030

== ENCOUNTER 2025-08-17 17:30 | Emergency (ER) | payer OTHER, SELFPAY ==
[2025-08-17] VITALS (26 sets, daily range): BP systolic 133–209; BP diastolic 63–110; PULSE 57–68; RESP 13–22; TEMP 36.6–36.8; O2SAT 97–100
--- NOTE | ~2025-08-17 | XR_ITS ---
XR chest 1V portable INDICATION:dizziness, elevated bp . REFERENCE: None FINDINGS: A single AP of the chest demonstrates enlarged heart. There are interstitial groundglass opacities bilaterally. There is no evidence of pneumothorax or pleural effusion. IMPRESSION: Pulmonary congestion. Reviewed, dictated and finalized at location S. IMPRESSION: Pulmonary congestion.
--- NOTE | ~2025-08-17 | CT_ITS ---
REFERENCE: [None available.] TECHNIQUE: Axial mm images of the head and neck were obtained without and with infusion of 100 cc of Isovue-300 of intravenous contrast. Postcontrast 1.25 mm axial images were then obtained. On an independent workstation, 0.625 mm axial images were utilized to render MIP and MPR images of the intracranial circulation. CTA NECK: The aortic arch demonstrates normal caliber and patency. Normal branching pattern is noted of the supraaortic vessels. The origins of the supraaortic vessels are widely patent.. Atherosclerotic calcification within the carotid bulb without significant stenosis. Vascular calcification within the cervical segments and internal carotid artery bilaterally as well as in the intracranial carotid artery significant stenosis. The common carotid and cervical segments of the ICA and ECA demonstrate normal caliber and patency. The vertebral arteries are symmetric in size, demonstrating normal patency. CTA HEAD: The intracranial ICA, JOSE ANTONIO, and MCA demonstrate normal caliber and patency. No hemodynamically significant stenosis or aneurysm is identified. The distal vertebral, basilar, and bilateral posterior cerebral arteries demonstrate normal caliber and patency. The superior cerebellar arteries are also widely patent. NONVASCULAR FINDINGS: The soft tissue of the neck is unremarkable. No mass or pathologic enhancement is noted. There is no pathologically enlarged lymphadenopathy. The airway is patent. No acute intracranial hemorrhage, mass, or extraaxial fluid collections are noted. Ventricular size is normal. The skull is intact. The visualized mastoid air cells and sinuses are clear. There is no pathologic enhancement. IMPRESSION: No hemodynamically significant stenosis is noted of the cervical and intracranial arterial vasculature. Reviewed, dictated and finalized at location S. IMPRESSION: No hemodynamically significant stenosis is noted of the cervical and intracrani al arterial vasculature.
--- OUTSIDE RECORDS SUMMARY | 2025-08-17 17:32 | XMS_ITS | Encounter Summary ---
Author Organization [facility] Health Address [address] [place] [address] Care Team Providers Care Gauntlet Pairer Name Role Phone Unavailable Primary Care Provider Unavailabl e Prior Encounters Date Type Department Care Team Description 04/19/2021 Travel 04/19/2021 1:30 PM CDT Office Visit [facility] [address] [place] [phone] Hedy Wilkins, DMD 04/12/2021 Orders Only [facility] [address] [place] [phone] Angie Cortes, DMD 11/14/2019 Converted CPS Chart Documents [facility] [address] [place] [address] <No scans attached> 11/14/2019 Converted 13x Documents [facility] [address] [place] [address] <No scans attached> Last Filed Vital Signs Vital Sign Reading Time Taken Comments Blood Pressure 152/75 04/19/2021 1:34 PM CDT Pulse - - Temperature 36.5 C (97.7 F) 04/19/2021 1:34 PM CDT Respiratory Rate - - Oxygen Saturation - - Inhaled Oxygen Concentration - - Weight 65.8 kg (145 lb) 04/19/2021 1:34 PM CDT Height 172.7 cm (5' 8) 04/19/2021 1:34 PM CDT Body Mass Index 22.05 04/19/2021 1:34 PM CDT Plan of Treatment Not on file Procedures Procedure Name Priority Date/Time Associated Diagnosis Comments OS CONSULT Routine 04/19/2021 1:30 PM CDT 14 EXTRACTION, ERUPTED TOOTH REQUIRING REMOVAL OF BONE AND/OR SECTIONING OF TOOTH Routine 04/19/2021 1:30 PM CDT 15 LIMITED ORAL EVALUATION - PROBLEM FOCUSED Routine 03/06/2021 2:00 AM CDT 32 EXTRACTION, ERUPTED TOOTH OR EXPOSED ROOT (ELEVATION AND/OR FORCEPS REMOVAL) Routine 02/18/2021 2:00 AM CDT PERIODIC ORAL EVALUATION - ESTABLISHED PATIENT Routine 02/18/2021 2:00 AM CDT PERIO MAINTENANCE Routine 02/18/2021 2:0 0 AM CDT ORAL HYGIENE INSTRUCTIONS Routine 2020 2:00 AM CDT TOPICAL APPLICATION OF FLUORIDE VARNISH Routine 02/18/2021 2:00 AM CDT OFFICE VISIT FOR OBSERVATION (DURING REGULARLY SCHEDULED HOURS) - NO OTHER SERVICES PERFORMED Routine 02/18/2021 2:00 AM CDT 19 CROWN - FULL CAST HIGH YANES METAL Routine 08/02/2020 2:00 AM CDT 18 CROWN - FULL CAST HIGH YANES METAL Routine 08/02/2020 2:00 AM CDT 20 CROWN PORC POST Routine 08/02/2020 2: 00 AM CDT 2 MOD AMALGAM 3 SURFACE Routine 08/02/20 20 2:00 AM CDT 11 F AMALGAM 1 SURFACE Routine 0 2:00 AM CDT 29 ENDODONTIC THERAPY, ANTERIOR TOOTH (EXCLUDING FINAL HOLINESS) Routine 08/02/2020 2:00 AM CDT 20 ENDODONTIC THERAPY, ANTERIOR TOOTH (EXCLUDING FINAL HOLINESS) Routine 08/02/2020 2:00 AM CDT 15 ENDODONTIC THERAPY, ANTERIOR TOOTH (EXCLUDING FINAL HOLINESS) Routine 08/02/2020 2:00 AM CDT 14 ENDODONTIC THERAPY, ANTERIOR TOOTH (EXCLUDING FINAL HOLINESS) Routine 08/02/2020 2:00 AM CDT 11 ENDODONTIC THERAPY, ANTERIOR TOOTH (EXCLUDING FINAL HOLINESS) Routine 08/02/2020 2:00 AM CDT OS CONSULT Routine 08/02/2020 2:00 AM CDT 30 EXTRACTION, ERUPTED TOOTH OR EXPOSED ROOT (ELEVATION AND/OR FORCEPS REMOVAL) Routine 08/02/2020 2:00 AM CDT 28 EXTRACTION, ERUPTED TOOTH OR EXPOSED ROOT (ELEVATION AND/OR FORCEPS REMOVAL) Routine 08/02/2020 2:00 AM CDT 21 EXTRACTION, ERUPTED TOOTH OR EXPOSED ROOT (ELEVATION AND/OR FORCEPS REMOVAL) Routine 08/02/2020 2:00 AM CDT 16 EXTRACTION, ERUPTED TOOTH OR EXPOSED ROOT (ELEVATION AND/OR FORCEPS REMOVAL) Routine 08/02/2020 2:00 AM CDT 12 EXTRACTION, ERUPTED TOOTH OR EXPOSED ROOT (ELEVATION AND/OR FORCEPS REMOVAL) Routine 08/02/2020 2:00 AM CDT 5 EXTRACTION, ERUPTED TOOTH OR EXPOSED ROOT (ELEVATION AND/OR FORCEPS REMOVAL) Routine 08/02/2020 2:00 AM CDT 1 EXTRACTION, ERUPTED TOOTH OR EXPOSED ROOT (ELEVATION AND/OR FORCEPS REMOVAL) Routine 08/02/2020 2:00 AM CDT COMPREHENSIVE ORAL EVALUATION - NEW OR ESTABLISHED PATIENT Routine 08/02/2020 2:00 AM CDT ORAL HYGIENE INSTRUCTIONS Routine 2019 2:00 AM CDT ORAL HYGIENE INSTRUCTIONS Routine 2019 2:00 AM CDT LL NEDRA DECON/QD Routine 08/02/2020 2:00 AM CDT LL PERIODONTAL SCALING AND ROOT PLANING - ONE TO THREE TEETH PER QUADRANT Routine 08/02/2020 2:00 AM CDT LL ANTIBACT IRR/QUAD Routine 08/02/2020 2:00 AM CDT TOPICAL APPLICATION OF FLUORIDE VARNISH Routine 08/02/2020 2:00 AM CDT PROPHYLAXIS - ADULT Routine 08/02/2020 2 :00 AM CDT PANORAMIC RADIOGRAPHIC IMAGE Routine 08/02/2020 2:00 AM CDT INTRAORAL - COMPREHENSIVE SERIES OF RADIOGRAPHIC IMAGES Routine 08/02/2020 2:00 AM CDT INTRAORAL PHOTO Routine 08/02/2020 2:00 AM CDT INTRAORAL PHOTO Routine 08/02/2020 2:00 AM CDT INTRAORAL PHOTO Routine 08/02/2020 2:00 AM CDT INTRAORAL PHOTO Routine 08/02/2020 2:00 AM CDT 15 MOD COMPOSITE FILLING Routine 020 2:00 AM CDT 29 DO COMPOSITE FILLING Routine 08/02/20 20 2:00 AM CDT 31 O COMPOSITE FILLING Routine 0 2:00 AM CDT 29 B COMPOSITE FILLING Routine 0 2:00 AM CDT 11 L COMPOSITE FILLING Routine 0 2:00 AM CDT Visit Diagnoses Not on file
--- OUTSIDE RECORDS SUMMARY | 2025-08-17 17:32 | XMS_ITS | Clinical Summary ---
Author Organization [facility] Health Address [address] [place] [address] Care Team Providers Care Stock And Station Agent Name Role Phone Unavailable Primary Care Provider Unavailabl e Allergies No known active allergies Medications chlorhexidine (PERIDEX) 0.12 % solution Use 15 mL in the mouth or throat twice a day. Swish and spit with 15 mL twice daily after brushing (do not use for more than two consecutive weeks) 473 mL 1 Active simvastatin (ZOCOR) 40 mg tablet Take 40 mg by mouth 1 (one) time each day. 1 Active ibuprofen (ADVIL,MOTRIN) 600 mg tablet Take 1 tablet (600 mg total) by mouth every 6 (six) hours if needed for mild pain or moderate pain. 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 Overview (04/19/2021): Erectile dysfunction, unspecified erectile dysfunction type Gastritis 11/23/2015 Overview (04/19/2021): Gastritis Unknown and unspecified causes of morbidity 10/27 Overview (04/19/2021): Exercise counseling Dietary counseling Coronary arteriosclerosis in [place] artery 12/05 Overview (04/19/2021): Coronary arteriosclerosis in [place] artery Injury of finger 07/07/2012 Open wound of finger with tendon involvement Social History Tobacco Use Types Packs/Day Years Used Date Smoking Tobacco: Never Smokeless Tobacco: Never Alcohol Use Standard Drinks/Week Comments Never 0 (1 standard drink = 0.6 oz pur e alcohol) Sex and Gender Information Value Date Recorded Sex Assigned at Not on file Legal Sex Male 4:44 PM PDT Gender Identity Not on file Sexual Orientation Not on file Last Filed Vital Signs Vital Sign Reading [...] 04/19/2021 1:34 PM CDT Plan of Treatment Health Maintenance Due Date Last Done Comments Dental X-Ray: Bitewings 02/01/2021 08/02/2020 Periodontal Maintenance 05/21/2021 02/18/2021 Dental Oral Exam 08/21/2021 02/18/2021, 08/02/2020 Scaling and Root Planing 08/16/2022 08/02/2020 Dental X-Ray: Full Mouth 03/18/2024 03/17/2021, 05/2020 Dental X-Ray: Panoramic 03/18/2024 03/17/2021, 08/02 Procedures Procedure Name Priority Date/Time Associated Diagnosis Comments PERIODIC ORAL EVALUATION - ESTABLISHED PATIENT Routine 02/18/2021 2:00 AM CDT PERIO MAINTENANCE Routine 02/18/2021 2:0 0 AM CDT PANORAMIC RADIOGRAPHIC IMAGE Routine 08/02/2020 2:00 AM CDT LL PERIODONTAL SCALING AND ROOT PLANING - ONE TO THREE TEETH PER QUADRANT Routine 08/02/2020 2:00 AM CDT INTRAORAL - COMPREHENSIVE SERIES OF RADIOGRAPHIC IMAGES Routine 08/02/2020 2:00 AM CDT from Last 3 Months or Most Recently Relevant to Health Maintenance
--- OUTSIDE RECORDS SUMMARY | 2025-08-17 17:32 | XMS_ITS | Clinical Summary ---
Author Organization [facility] [place] [address] Address [address] [place] [address] Care Team Providers Care Mortgage Analyst Name Role Phone Fred Hudson MD Unavailable [phone] Joe Castellanos MD Unavailable [phone] Donato Owusu MD Primary Care Provider [phone] Allergies No known active allergies Medications aspirin 81 mg tablet take 1 tablet by oral route every day 60 3 6 Active diclofenac (CATAFLAM) 50 mg tablet TAKE 1 TABLET (50 MG) BY MOUTH THREE TIMES A DAY NEEDED FOR PAIN 4 Active multivit with min-folic acid 200 mcg tablet,chewable Take 1 tablet by mouth daily Active simvastatin (ZOCOR) 40 mg tabletIndications:Co ronary arteriosclerosis in [place] artery Take 1 tablet (40 mg total) by mouth nightly 90 tablet 3 5 Active Active Problems Problem Noted Date Diagnosed Date Dyslipidemia 06/13/2024 Dizziness 11/18/2021 Hx of CABG 09/16/2021 Drug-induced erectile dysfunction 09/16/2021 Mild aortic stenosis 11/14/2019 PVC's (premature ventricular contractions) 11/27 GALDAMEZ (dyspnea on exertion) 11/22/2018 Herniated lumbar intervertebral disc 09/14/2017 Lumbar radiculopathy 07/29/2017 Spinal stenosis of lumbar region 07/29/2017 Impotence of organic origin 02/06/2016 Overview (01/30/2017): Erectile dysfunction, unspecified erectile dysfunction type Gastritis 11/23/2015 Overview (01/30/2017): Gastritis Follow-up status 11/23/2015 Overview (01/30/2017): Exercise counseling Patient encounter status 11/23/2015 Overview (01/30/2017): Dietary counseling Coronary arteriosclerosis in [place] artery 12/05 Overview (01/30/2017): Coronary arteriosclerosis in [place] artery Injury of finger 07/07/2012 Open wound of hand with tendon involvement 01/06 Open wound of finger with tendon involvement 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 Encounters Date Type Department Care Team Description 07/18/2025 2:00 PM CDT Office Visit [facility] [address] [place] [address] Zahra Og NP Coronary arteriosclerosis in [place] artery (Primary Dx); Hx of CABG; PVC's (premature ventricular contractions); Mild aortic stenosis from Last 3 Months Surgical History Surgery Date Site/Laterality Comments HERNIA REPAIR CYSTOSCOPY TENDON REPAIR Medical History Medical History Date Comments Hx Other Medical CAD, PVCs, DLD, kidney stones CHF (congestive heart failure) (HCC) Coronary artery disease NSTEMI (non-ST elevated myoc ardial infarction) (HCC) Family History Medical History Relation Name Comments Heart disease Father COPD Mother Cancer Mother Relation Name Status Comments Father (Age 89) Mother (Age 90's) Social History Tobacco Use Types Packs/Day Years Used Date Smoking Tobacco: Never Smokeless Tobacco: Never Alcohol Use Standard Drinks/Week Comments No 0 (1 standard drink = 0.6 oz pur e alcohol) AUDIT-C Answer Date Recorded Q1: How often do you have a drink containing alc ohol? Never 08/12/2021 Average Number of Drinks Not on file 021 Q3: How often do you have si x or more drinks on one occasion? Never 08/12/2021 Sex and Gender Information Value Date Recorded Sex Assigned at Not on file Legal Sex Male 3:52 AM MANAGER NURSING HOME Gender Identity Not on file Sexual Orientation Not on file Obstetrics History Last Filed Vital Signs Vital Sign Reading Time Taken Comments Blood Pressure 102/56 07/18/2025 1:59 PM CDT Pulse 58 07/18/2025 1:59 PM CDT Temperature 36.6 C (97.8 F) 09/21/2021 11:10 AM MANAGER NURSING HOME Respiratory Rate 14 01/14/2022 2:24 PM CDT Oxygen Saturation 96% 07/18/2025 1:59 PM CDT Inhaled Oxygen Concentration - - Weight 63 kg (139 lb) 07/18/2025 1:59 PM CDT Height 172.7 cm (5' 8) 07/18/2025 1:59 PM CDT Body Mass Index 21.13 07/18/2025 1:59 PM CDT Plan of Treatment Health Maintenance Due Date Last Done Comments Depression Screening 1940 DTaP/Tdap/Td Vaccine (1 - Tdap) 1953 Hepatitis B Screening 02/22/1960 Pneumococcal vaccine 65+ (1 of 1 - PCV) 02/22/1992 Well Visit 65+ 2007 Fall Risk Assessment 08/21/2022 08/21/2021 Influenza Vaccine (#1) 2025 , 09/04/2019, 10/26/2017 Zoster Vaccine Completed 09/04/2021, 06/25/2021 Insurance [facility] Advance Directives For more information, please contact: [phone] Documents on File Type Date Recorded Patient Bi Tester Expl anation ADVANCE DIRECTIVE 08/22/2021 12:32 PM [facility] BUILDER[employer]ICAL * Full Code (Latest Code Status on File) Date Activated Date Inactivated Comments 08/16/2021 2:41 PM 08/21/2021 10:13 PM * Full Code Date Activated Date Inactivated Comments 08/13/2021 12:56 PM 08/16/2021 2:41 PM Care Teams Mortgage Analyst Relationship Specialty Start Date End Date Donato Owusu MD [address] [facility] [address] [address] PCP - General Family Practice 07/17/23 Fred Hudson MD Surgeon Cardiothoracic Surgery 08/21/21 Joe Castellanos MD [address] [address] Consulting Physician Interventional Cardiology 08/21/21
--- NOTE | 2025-08-17 17:40 | ECG_ITS ---
Test Date: 2025-08-17 17:39:47 Measurements Intervals [place] Rate: 60 P: 50 AR: 171 QRS: -74 QRSD: 168 T: 34 QT: 476 QTc: 476 Interpretive Statements SINUS RHYTHM WITH FREQUENT VENTRICULAR PREMATURE COMPLEXES RIGHT BUNDLE BRANCH BLOCK LEFT ANTERIOR FASCICULAR BLOCK ABNORMAL ECG No previous ECG available for comparison Electronically Signed On 08-17-2025 20:57:28 CDT by Jonah Campa D.O.
--- NOTE | 2025-08-17 17:55 | ED.RECABL ---
HPI - Recheck/Abnormal Lab/Rx General Chief Complaint: Recheck/Abnormal Lab/Rx Stated Complaint: high bp Time Seen by Provider: 08/17/25 17:48 Source: patient Mode of arrival: ambulatory Limitations: no limitations History of Present Illness HPI narrative: Patient is an 85-year-old male, with PMH of CAD, CHF, who presents the ED with report of dizziness, elevated blood pressure. Patient reports he was riding his lawnmower a couple of hours ago today when he began feeling dizzy. Described the dizziness as somewhat lightheaded, but also as though the room was spinning. States he has had similar dizziness in the past. Typically resolves on its own. Dizziness is slightly improved currently. States he went inside and his checked his blood pressure and it was elevated above 200 systolic. He then prompted here for further evaluation. Patient does not have prior history of hypertension. Is not on any medication for this. Does not remember the last time he had his blood pressure checked. Denies any pain, headache, vision changes, chest pain, shortness of breath, focal numbness or weakness, slurred speech, confusion. Related Data Home Medications ?Medication ?Instructions ?Recorded ?Confirmed ?Last Taken ?Type aspirin 81 mg tablet,delayed 81 mg PO HS 12/30/19 10/10/24 08/11/21 History release (Adult Aspirin Regimen) simvastatin 40 mg tablet 40 mg PO HS 12/30/19 10/10/24 08/10/21 History Allergies Allergy/AdvReac Type Severity Reaction Status Date / Time No Known Allergies Allergy Verified 08/17/25 17:40 Review of Systems Review of Systems: All systems reviewed & are unremarkable except as noted in HPI. All systems reviewed & are unremarkable except as noted in HPI and below [facility] Past Medical History Medical History Hx of non-ST elevation myocardial infarction (NSTEMI) CHF (congestive heart failure) Ureteral calculi Coronary artery disease Status post stent to the proximal LAD and mid right coronary artery. 50% narrowing in the mid circumflex noted on cardiac catheterization in July 2010. 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 History of right inguinal hernia repair (05/27/18) History of cystoscopy (04/20/14) With right ureteroscopy, stone extraction, and right ureteral stent placement. History of left inguinal hernia repair (02/21/05) History of colonoscopy History of coronary artery stent placement (02/07/10) Proximal LAD and mid right coronary artery. Family History Family History Mother Patient's mother is Family history of chronic obstructive pulmonary disease Cancer Family history of malignant neoplasm Father Family history of heart disease in male family member before age 55 Family history of diabetes mellitus in first degree relative Patient's father is Family history of cardiovascular disease Social History Social History Social History: Surrogate decision maker: Laura Boom, spouse. Code status: Full code. Smoking status: Never smoker Second hand tobacco smoke exposure: No Alcohol intake: never Substance use: never Substance use type: does not use Do You Feel Safe in your Home?: Yes Lack of Transportation: No Lack of Food: Never True Current Housing: I Have Housing Concerned About Future Housing: No Difficulty Paying Gas/Electric Bills: No Difficulty Paying for Meds: No Currently Unemployed: No Education: Associate Degree Difficulty w/ Childcare or Family Care: No Living arrangements: with family Additional living arrangements comments: Resides in [place] with his . 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 Gender identity (if verbalized by the patient): Male Sexual Orientation (if Verbalized by the Patient): Straight or Heterosexual Spiritual care concerns: No Agree to blood products: Yes Exam Narrative: GENERAL: Well appearing, well-nourished, non-toxic, in no acute distress. HEAD: Normocephalic, atraumatic. EYES: PERRL/EOMI, conjunctivae clear bilaterally. Very faint fatigable nystagmus when looking to the right, does not reproduce dizziness. NECK: Supple. No meningeal signs. RESPIRATORY: Airway patent, respirations nonlabored. Clear to auscultation bilaterally, no rales, rhonchi, wheezing. CARDIOVASCULAR: Regular rate and rhythm without murmurs, rubs, or gallops. Peripheral pulses 2+ and equal bilaterally. MUSCULOSKELETAL: Moves all extremities. No gross deformities. SKIN: Warm, dry, normal color. No rashes. NEURO: A&O X3. Speech clear. Follows commands. CN II-XII intact. Sensation grossly intact. Steady gait. No ataxic movements. Strength 5/5 in upper and lower extremities bilaterally. Dhlm-jo-lzzb and iltzqh-op-wrvu testing intact bilaterally. No pronator drift. Equal foreign banknote teller trader strength bilaterally. PSYCHIATRIC: Appropriate mood and affect. Normal interaction. Course Vital Signs Vital signs: Vital Signs Temperature 98.3 F 08/17/25 17:33 Pulse Rate 61 08/17/25 17:33 Respiratory Rate 20 08/17/25 17:33 Blood Pressure 209/110 H 08/17/25 17:33 Pulse Oximetry 98 08/17/25 17:33 Oxygen Delivery Room Air 08/17/25 17:33 Temperature 97.9 F 08/17/25 17:38 Pulse Rate 61 08/17/25 22:35 Respiratory Rate 19 08/17/25 22:35 Blood Pressure 165/89 H 08/17/25 22:35 Pulse Oximetry 100 08/17/25 22:35 Oxygen Delivery Room Air 08/17/25 17:33 MDM - Recheck/Abnormal Lab/Rx MDM Narrative Medical decision making narrative: Patient presented to ED with dizziness/lightheadedness, elevated blood pressure. Began a couple hours ago prior to arrival. Does have history of similar dizziness in the past. No previous history of hypertension. BP upon arrival 209/110. This did improve to 170s systolic without intervention by the time of my evaluation. Vital signs are otherwise stable. Patient is neurologically intact. There is no deficits appreciated on my neurologic exam. EKG with sinus rhythm, frequent PVCs, which patient reports history of. No significant concerning ST changes. Denying any CP. Laboratory studies are fairly unremarkable. No leukocytosis or anemia. Stable electrolytes. Kidney function stable. Troponin 0.016. Will continue to trend. BNP 674. Patient does not appear fluid overloaded, no peripheral edema. No shortness of breath. Chest x-ray with mild pulmonary vascular congestion. CT brain/CTA brain and carotids without acute findings or hemodynamically significant stenosis. Delta troponin negative. Patient given fluids and meclizine in the ED. He is feeling much better on re-evaluation. Denies any further dizziness. Remains neurologically intact. Discussed overall reassuring workup. Patient states he is ready to go home. States he feels comfortable doing so and will follow-up with his primary care doctor. I have low suspicion for central process of dizziness at this time. Does report he has had intermittent episodes of this dizziness in the past which have presented similarly and resolved on their own. Suspicious for BPPV. Blood pressure did normalize into the 130s without intervention, but has been somewhat labile throughout ED stay. Advised patient to monitor blood pressure closely at home, keep recording this, have close follow-up with PCP regarding blood pressure changes in potential need for antihypertensive medications. Patient given very strict return precautions, including signs and symptoms of CVA. He was understanding. Again feels comfortable going home. Discharged in stable condition. Vital signs stable at time of D/C. Medical Records Attestation: I reviewed the patient's medical records. Lab Data Attestation: I reviewed the patient's lab results. 08/17/25 17:54 08/17/25 17:54 Labs: Lab Results 08/17/25 08/17/25 Range/Units 17:54 20:50 WBC 7.6 (4.5-10.0) K/mm3 RBC 4.56 L (4.6-6.20) M/mm3 Hgb 14.4 (14.0-18.0) g/dL Hct 44.4 (42.0-52.0) % MCV 97.4 (80-100) fl MCH 31.6 (26-34) pg MCHC 32.4 (32-36) g/dl RDW 13.2 (11.5-14.5) % Plt Count 197 (150-375) k/mm3 MPV 9.9 (7.4-10.4) fl Immature Gran % (Auto) 0.3 (0-0.5) % Neut % (Auto) 62.8 (45.5-73.1) % Lymph % (Auto) 22.9 (18.3-44.2) % Park % (Auto) 7.7 (2.6-8.5) % Eos % (Auto) 5.5 H (0-4.4) % Baso % (Auto) 0.8 (0.2-1.2) % Lymph # (Auto) 1.75 (0.9-3.2) K/mm3 Park # (Auto) 0.6 (0.1-0.6) K/mm3 Eos # (Auto) 0.4 H (0-0.3) K/mm3 Baso # (Auto) 0.1 (0.0-0.1) K/mm3 Abs Immat Gran (auto) 0.02 (0.00-0.031) K/mm3 Absolute Neuts (auto) 4.8 (1.3-6.7) K/mm3 Absolute Nucleated RBC 0.000 (0.0-0.012) K/mm3 Nucleated RBC % 0.0 (0.0-0.2) % PT 13.0 (11.1-14.7) Seconds INR 1.0 APTT 28.9 (22.3-36.8) Seconds Sodium 139 (137-145) mmol/L Potassium 4.0 (3.4-5.0) mmol/L Chloride 103 (98-107) mmol/L Carbon Dioxide 29 (22-30) mmol/L Anion Gap 7 (4-12) mmol/L BUN 17 (9-20) mg/dL Creatinine 1.00 (0.7-1.3) mg/dL Estim Creat Clear Calc 44 ml/min Estimated GFR > 60 (59 - ) Glucose 93 (65-110) mg/dL Calcium 9.2 (8.4-10.2) mg/dL Total Bilirubin 0.6 (0.2-1.3) mg/dL AST 30 (17-59) U/L ALT 23 (6-50) U/L Alkaline Phosphatase 82 (38-126) U/L Troponin I 0.016 0.018 (0.000-0.034) ng/mL NT-Pro-B Natriuret Pep 674 H (19.9-100) pg/mL Total Protein 7.3 (6.3-8.2) g/dL Albumin 4.3 (3.5-5.1) g/dL Imaging Data Attestation: I personally reviewed and interpreted this imaging study as follows: Radiologist's impression: ITS Impressions Chest X-Ray 10/23/25 17:59 IMPRESSION: Pulmonary congestion. Head/Neck CTA 08/17/25 19:11 IMPRESSION: No hemodynamically significant stenosis is noted of the cervical and intracranial arterial vasculature. ECG Data EKG #1: Attestation: I personally reviewed and interpreted this ECG as follows: ECG completion date: 08/17/25 ECG completion time: 17:39 EKG Interpretation: normal rate (60), sinus rhythm, PVCs (frequent), non-specific ST changes and RBBB Discharge Plan Discharge Clinical Impression: Dizziness, Situational hypertension Patient Disposition: Home Condition: Stable Instructions: Antibiotic Form, Vertigo (ED), Chronic Hypertension (ED), Dizziness (ED) Additional Instructions: Your workup here was reassuring. Stay well hydrated. You may utilize meclizine as needed for further dizziness. Monitor your blood pressures at home. Recommend keeping recording of this daily. Recommend close follow-up with your primary care doctor for further evaluation. Call office tomorrow to make follow-up appointment. Return to the ED if you experience worsening or severe dizziness, passing out, unable to keep down food or drink, vision changes, numbness or weakness of arm or leg, slurred speech, confusion, chest pain, difficulty breathing, or any other symptoms of concern. Patient Language: Faroese Prescriptions: New meclizine 25 mg tablet 25 mg PO TID PRN (Reason: dizziness) Qty: 15 0RF No Action aspirin [Adult Aspirin Regimen] 81 mg tablet,delayed release (DR/EC) 81 mg PO HS simvastatin 40 mg tablet 40 mg PO HS albuterol sulfate 90 mcg/actuation HFA aerosol inhaler 2 inh inhalation Q4H PRN (Reason: shortness of breath or wheezing) Qty: 8.5 1RF fluticasone propionate [Flonase Allergy Relief] 50 mcg/actuation spray,suspension 2 spray intranasal DAILY Qty: 48 0RF Rx Instructions: administer into each nostril escitalopram oxalate 10 mg tablet 10 mg PO DAILY Qty: 90 1RF tamsulosin 0.4 mg capsule See Rx Instructions .ROUTE .COMPLEX Qty: 90 1RF Dose Instruction: TAKE 1 CAPSULE BY MOUTH EVERYDAY AT BEDTIME Rx Instructions: TAKE 1 CAPSULE BY MOUTH EVERYDAY AT BEDTIME diclofenac sodium 75 mg tablet,delayed release (DR/EC) 75 mg PO BID PRN (Reason: pain) Qty: 180 0RF Follow-up/Referrals: Donato Owusu MD [Primary Care Provider, [facility]] Time of Disposition: 22:24
[2025-08-17 18:01] LABS: Hematocrit 44.4 % (42.0-52.0); Hemoglobin 14.4 g/dL (14.0-18.0); Immature Granulocyte Percent A 0.3 % (0-0.5); Lymphocytes Absolute Auto 1.75 K/mm3 (0.9-3.2); Mean Corpuscular HGB Conc 32.4 g/dl (32-36); Mean Corpuscular Hemoglobin 31.6 pg (26-34); Mean Corpuscular Volume 97.4 fl (80-100); Nucleated Red Blood Cells Absolute Auto 0.000 K/mm3 (0.0-0.012); Nucleated Red Blood Cells Perc 0.0 % (0.0-0.2); Platelet Count Result 197 k/mm3 (150-375); Red Blood Count 4.56 M/mm3 (4.6-6.20); White Blood Count 7.6 K/mm3 (4.5-10.0)
[2025-08-17 18:13] LABS: Alanine Aminotransferase 23 U/L (6-50); Albumin Level 4.3 g/dL (3.5-5.1); Alkaline Phosphatase 82 U/L (38-126); Anion Gap 7 mmol/L (4-12); Aspartate Amino Transferase 30 U/L (17-59); Bilirubin,Total 0.6 mg/dL (0.2-1.3); Blood Urea Nitrogen 17 mg/dL (9-20); Calcium 9.2 mg/dL (8.4-10.2); Carbon Dioxide 29 mmol/L (22-30); Chloride 103 mmol/L (98-107); Estimated CRCL calculation 44 ml/min; Estimated Glomerular Filt Rate > 60; Glucose 93 mg/dL (65-110); INR 1.0; Potassium 4.0 mmol/L (3.4-5.0); Prothrombin Time 13.0 Seconds (11.1-14.7); Sodium 139 mmol/L (137-145); Total Protein 7.3 g/dL (6.3-8.2)
[2025-08-17 18:14] LABS: Partial Thromboplastin Time 28.9 Seconds (22.3-36.8)
[2025-08-17] MEDS: SODIUM CHLORIDE 0.9% IV 500 ML 999 ML IV CONT (18:18)
[2025-08-17] MEDS: MECLIZINE HCL 25 MG TABLET PO (18:20)
[2025-08-17 18:23] LABS: NT Pro B Type Natriuretic Pept 674 pg/mL (19.9-100); Troponin I 0.016 ng/mL (0.000-0.034)
--- NOTE | 2025-08-17 20:55 | ECG_ITS ---
Test Date: 2025-08-17 21:08:34 Measurements Intervals [place] Rate: 53 P: 52 TN: 175 QRS: -78 QRSD: 173 T: 68 QT: 490 QTc: 464 Interpretive Statements SINUS BRADYCARDIA WITH OCCASIONAL SUPRAVENTRICULAR PREMATURE COMPLEXES RIGHT BUNDLE BRANCH BLOCK LEFT ANTERIOR FASCICULAR BLOCK VOLTAGE CRITERIA FOR LVH ABNORMAL ECG Compared to ECG 08/17/2025 17:39:47 HEART RATE HAS DECREASED VENTRICULAR PREMATURE COMPLEXES NO LONGER PRESENT Electronically Signed On 08-18-2025 06:07:21 CDT by Jonah Campa D.O.
[2025-08-17 22:20] LABS: Troponin I 0.018 ng/mL (0.000-0.034)
== END 2025-08-17 22:37 | disposition home or self-care (01) ==
PROVIDERS: Emergency Provider Physician Assistant; PCP Family Medicine
DX: R42 Dizziness and giddiness (principal); R03.0 Elevated blood-pressure reading, without diagnosis of hypertension; I25.10 Atherosclerotic heart disease of native coronary artery without angina pectoris; I50.9 Heart failure, unspecified; I25.2 Old myocardial infarction; E78.2 Mixed hyperlipidemia; Z95.1 Presence of aortocoronary bypass graft
CPT/HCPCS: 36415; 70496; 70498; 71045; 80053; 83880; 84484; 85025; 85610; 85730; 93005; 96360; 99283; A9270; J7040; Q9967